=== PATIENT | female | born 1975 | race Asian ===

== ENCOUNTER 2018-02-24 23:26 | Emergency (ER) | payer MEDICAID ==
[2018-02-25] MEDS ORDERED: Levofloxacin 500mg/100mL 500 MG/100 ML BAG IV ONE ×2 (00:11→00:23)
[2018-02-25] MEDS ORDERED: Sodium Chloride 0.9% 500 ML IV ONE (00:12)
[2018-02-25 00:16] LABS: URINE MICROSCOPIC INDICATED? YES; URINE SOURCE MIDSTREAM
[2018-02-25 00:20] LABS: URINE BILIRUBIN NEGATIVE (NEGATIVE); URINE BLOOD MODERATE (NEGATIVE); URINE GLUCOSE (UA) NEGATIVE (NEGATIVE); URINE KETONE NEGATIVE (NEGATIVE); URINE LEUKOCYTE ESTERASE SMALL (NEGATIVE); URINE NITRATE NEGATIVE (NEGATIVE); URINE PROTEIN NEGATIVE (NEGATIVE); URINE UROBILINOGEN 0.2 E.U./dL (0.2 - 1.0)
[2018-02-25 00:21] LABS: URINE CLARITY CLEAR (CLEAR)
[2018-02-25 00:22] LABS: URINE COLOR OTHER
[2018-02-25 00:28] LABS: URINE BACTERIA FEW /hpf (NONE SEEN); URINE EPITHELIAL CELLS FEW /lpf (FEW); URINE RBC 0-2 /hpf (0-5); URINE WBC 0-2 /hpf (0-5)
[2018-02-25 00:29] LABS: % BASOPHILS 0.1 % (0.0-2.0); % EOSINOPHILS 2.1 % (0.0-5.0); % LYMPHOCYTES 31.2 % (20.0-50.0); % MONOCYTES 7.7 % (2.0-10.0); % NEUTROPHILS 58.9 % (40.0-80.0); EOSINOPHILE ABSOLUTE 0.2 Th/cmm (0.1-0.4); HEMATOCRIT 34.4 % (41.0-60); HEMOGLOBIN 11.2 gm/dL (12-16); LYMPHOCYTE ABSOLUTE 2.3 Th/cmm (1.5-3.0); MEAN CELL VOLUME 89.5 fl (81-100); MEAN CORPUSCULAR HEMOGLOBIN 29.3 pg (27.0-31.0); MEAN CORPUSCULAR HGB CONC 32.7 pg (28.0-36.0); MEAN PLATELET VOLUME 6.9 fl; MONOCYTE ABSOLUTE 0.6 Th/cmm (0.3-1.0); NEUTROPHILE ABSOLUTE 4.2 Th/cmm (1.8-8.0); PLATELET COUNT 301 Th/cmm (150-400); RED BLOOD COUNT 3.84 Mil/cmm (3.80-5.10); RED CELL DISTRIBUTION WIDTH 13.4 % (11.5-20.0); WHITE BLOOD COUNT 7.3 Th/cmm (4.8-10.8)
[2018-02-25 00:46] LABS: ALB/GLOB RATIO 1.4 (1.0-1.8); ALBUMIN 4.2 gm/dL (3.7-5.3); ALKALINE PHOSPHATASE 54 U/L (34-104); ANION GAP 10.7 (7.0-16.0); BILIRUBIN,TOTAL 0.3 mg/dL (0.3-1.0); BUN - UREA NITROGEN 9 mg/dL (7-25); CALCIUM SERUM 9.3 mg/dL (8.6-10.3); CARBON DIOXIDE 24.5 mEq/L (21.0-31.0); CHLORIDE 102 mEq/L (98-107); CREATININE - SERUM 0.6 mg/dL (0.6-1.2); GFR AFRICAN-AMERICAN > 60.0 ml/min (>90); GFR NON AFRICAN-AMERICAN > 60.0 ml/min; GLUCOSE 90 mg/dL (70-105); POTASSIUM SERUM 3.2 mEq/L (3.5-5.1); SGOT 15 U/L (13-39); SGPT/ALT 12 U/L (7-52); SODIUM SERUM 134 mEq/L (136-145); TOTAL PROTEIN,SERUM 7.2 gm/dL (6.0-8.3)
[2018-02-25] MEDS ORDERED: Potassium Chloride 20 mEq ER Tab PO ONE ×2 (00:49→00:57)
--- NOTE | 2018-02-25 04:22 | ER Physician Documentation ---
DATE OF SERVICE: EMERGENCY ROOM EVALUATION AND TREATMENT This is a 42-year-old female patient who came to the hospital because of pain and burning in the lower suprapubic area, in the vaginal area, in the right lumbar area. This started 5 hours ago. The patient has no definite allergies. HISTORY OF PRESENT ILLNESS: The patient has a previous history of urinary tract infection for which she took some medication ____ or something like that and the patient got better. REVIEW OF SYSTEMS: EYES: No history of double vision, blurring, or blindness. CENTRAL NERVOUS SYSTEM: No history of TIA, stroke, encephalitis, or meningitis. PULMONARY: No history of pneumonia, TB, pulmonary embolism, COPD, emphysema, or bronchitis. BONES AND JOINTS: No apparent complaints. ENDOCRINE: No history of hypo or hyperthyroidism. Thyroid-turpin negative. Diabetes mellitus is negative. BACK: Right lumbar area has some tenderness and pain. TUMOR: She has no history of any cancers. A 12-point review of systems is essentially benign and negative. The triage nurse, Perlita, took vital signs showing temperature to be 98.4, pulse of 88, respirations 18, blood pressure of 115/79, oxygen saturation 100%. Height of ____ and weight is 52 kg. Flu is unknown. MEDICAL HISTORY: Has previous history of urinary tract infection. Otherwise, surgery, etc. is negative. SOCIAL HISTORY: The patient is , has 2 children. She does not drink. She does not smoke. She does not take drugs. CURRENT MEDICATIONS: None taking. SURGERIES IN THE PAST: None. FAMILY HISTORY: Negative. Pain is 8/10. ALLERGIES: No known allergies. The patient has no fever, no acute distress. Code status is full. The patient is alert and oriented x 4. PHYSICAL EXAMINATION: GENERAL: The patient appears to be awake, alert, oriented, not in any acute cardiorespiratory distress. HEENT: Conjunctivae pink. Sclerae white. HEENT is normal. NECK: Jugular venous pressure is normal. No meningeal signs. Carotids are normal. No uplift. No edema, no cyanosis, no petechia, no ecchymosis. BACK: The patient has mild tenderness in the right lumbar area and mild in the suprapubic area and some pain around the vaginal area and burning and frequency in the urinary tract area. CHEST: Clear. Trachea being central. Fairly good air entry in both lungs without any rales, rhonchi, or bronchial breathing. ABDOMEN: Soft, benign. Other than what is mentioned is negative. Liver is not enlarged. No ascites is present. CENTRAL NERVOUS SYSTEM: Normal. HEART: Reveals normal heart sounds. Soft fourth heart sound. Second heart sound is physiologically split. Third heart sound is absent. CLINICAL IMPRESSION: 1. The patient has cystitis and maybe early right-sided pyelonephritis. The patient will be given IV antibiotics and the patient will be given p.o. antibiotics and will be discharged for home to see her own physician. At first, the patient was refusing, then she agreed to take the medication. We will give the medication and send the patient home. 2. The patient is full code and no known allergies. JOB# [id number]
== END 2018-02-25 02:15 | disposition home or self-care (01) ==
LOC: ER 23:26
DX: N30.90 Cystitis, unspecified without hematuria (principal)
CPT/HCPCS: 99284; 96365; 36415; 85025; 87086; 81001; 80053; J1956; J7040; Z7502

== ENCOUNTER 2018-03-31 12:23 | Emergency (ER) | payer MEDICAID ==
[2018-03-31] MEDS ORDERED: Sodium Chloride 0.9% 1,000 ML IV ONE (12:45)
--- NOTE | 2018-03-31 12:52 | ED Physician Chart ---
ED Chief Complaint/HPI - Patient Information Date Seen:: 03/31/18 Time Seen:: 12:35 Chief Complaint:: Abdominal Pain History of Present Illness:: onset x 3 hours of intermittent, crampy lower abdominal pain and flank pain with dysuria; pt denies trauma, H/As, S/T, neck pain, C/P, SOB, A/N/V/D/C, fever , chills, bleeding, VB, VD, or hematuria; pt is eating and urinating well; pt last urinated one hour [employer] Allergies:: Allergies Allergy/AdvReac Type Severity Reaction Status Date / Time No Known Allergies Allergy Verified 02/24/18 23:46 Vitals:: Vital Signs - 8 hr 03/31/18 12:38 Temp 97.4 F HR 80 RR 16 BP 116/66 O2 Sat % 99 Historian:: Patient, Family Member Review:: Nurse's Note Reviewed <Linus Mccoy - Last Filed: 03/31/18 14:17> - Patient Information Allergies:: Allergies Allergy/AdvReac Type Severity Reaction Status Date / Time No Known Allergies Allergy Verified 02/24/18 23:46 Vitals:: Vital Signs - 8 hr 03/31/18 03/31/18 03/31/18 12:38 14:11 16:18 Temp 97.4 F HR 80 80 85 RR 16 16 16 BP 116/66 102/57 107/69 O2 Sat % 99 99 99 03/31/18 03/31/18 17:20 18:45 Temp HR 66 72 RR 16 16 BP 117/70 113/73 O2 Sat % 99 97 <Grecia Felder - Last Filed: 03/31/18 19:53> ED Review of Systems - Review of Systems General/Constitutional: No fever, No chills, No weight loss, No weakness, No diaphoresis, No edema, No loss of appetite Skin: No skin lesions, No rash, No bruising Head: No headache, No light-headedness Eyes: No loss of vision, No pain, No diplopia ENT: No earache, No nasal drainage, No sore throat, No tinnitus Neck: No neck pain, No swelling, No thyromegaly, No stiffness, No mass noted Cardio Vascular: No chest pain, No palpitations, No PND, No orthopnea, No edema Pulmonary: No SOB, No cough, No sputum, No wheezing GI: No nausea, No vomiting, No diarrhea, No pain, No melena, No hematochezia, No constipation, No hematemesis G/U: Dysuria, Frequency, No hematuria, No nacturia Specification Manager: No vaginal discharge, No abnormal vaginal bleed, No contraction Musculoskeletal: No bone or joint pain, No back pain, No muscle pain Endocrine: No polyuria, No polydipsia Psychiatric: No prior psych history, No depression, No anxiety, No suicidal ideation, No homicidal ideation, No auditory hallucination, No visual hallucination Hematopoietic: No bruising, No lymphadenopathy Allergic/Immuno: No urticaria, No angioedema Neurological: No syncope, No focal symptoms, No weakness, No paresthesia, No headache, No seizure, No dizziness, No confusion, No vertigo <Linus Mccoy - Last Filed: 03/31/18 14:17> ED Past Medical History - Past Medical History Obtainable: Yes Past Medical History: Other (UTI) Family History: HTN Social History: Non Smoker, No Alcohol, No Drug Use, Surgical History: None Psychiatricy History: None Medication: Reviewed <Linus Mccoy - Last Filed: 03/31/18 14:17> Family Medical History - Family Member Mother History Unknown: Yes Ethnicity: Non- <Linus Mccoy - Last Filed: 03/31/18 14:17> ED Physical Exam - Physical Examination General/Constitutional: Awake, Well-developed, well-nourished, Alert, No distress, GCS 15, Non-toxic appearing, Ambulatory Head: Atraumatic Eyes: Lids, conjuctiva normal, PERRL, EOMI Skin: Nl inspection, No rash, No skin lesions, No ecchymosis, Well hydrated, No lymphadenopathy ENMT: External ears, nose nl, TM canals nl, Nasal exam nl, Lips, teeth, gums nl , Oropharynx nl, Tonsils nl Neck: Nontender, Full ROM w/o pain, No JVD, No nuchal rigidity, No bruit, No mass, No stridor Other Neck comments:: supple; no meningeal signs; no cervical tenderness Respiratory: Nl effort/Exclusion, Clear to Auscultation, No Wheeze/Rhonchi/Rales Cardio Vascular: RRR, No murmur, gallop, rubs, NL S1 S2, Carotid/Femoral/Distal pulses equal bilaterally GI: No tenderness/rebounding/guarding, No organomegaly, No hernia, Normal BS's, Nondistended, No mass/bruits, No McBurney tenderness, Rectum exam nl Other GI comments:: no pulsatile masses : No CVA tenderness Extremities: No tenderness or effusion, Full ROM, normal strength in all extremities, No edema, Normal digits & nails Neuro/Psych: Alert/oriented, DTR's symmetric, Normal sensory exam, Normal motor strength, Judgement/insight normal, Mood normal, Normal gait, No focal deficits Misc: Normal back, No paraspinal tenderness <Linus Mccoy - Last Filed: 03/31/18 14:17> ED Labs/Radiology/EKG Results - Lab Results Comments:: U/A: + Pyuria; + Blood <Linus Mccoy - Last Filed: 03/31/18 14:17> - Lab Results Results: Laboratory Tests 03/31/18 03/31/18 03/31/18 12:50 12:50 12:50 WBC 5.0 RBC 4.23 Hgb 12.5 Hct 37.1 L MCV 87.6 MCH 29.5 MCHC Differential 33.6 RDW 13.0 Plt Count 319 MPV 6.5 Neutrophils % 54.6 Lymphocytes % 36.2 Monocytes % 6.8 Eosinophils % 1.7 Basophils % 0.7 Sodium 134 L Potassium 3.7 Chloride 101 Carbon Dioxide 28.2 Anion Gap 8.5 BUN 5 L Creatinine 0.7 Est GFR ( Amer) > 60.0 Est GFR (Non-Af Amer) > 60.0 BUN/Creatinine Ratio 7.1 Glucose 96 Calcium 9.6 Amylase 39 Lipase 19 Serum , Qual NEGATIVE Urine Source Urine Color Urine Clarity Urine pH Ur Specific [place] Urine Protein Urine Glucose (UA) Urine Ketones Urine Blood Urine Nitrate Urine Bilirubin Urine Urobilinogen Ur Leukocyte Esterase Urine RBC Urine WBC Ur Epithelial Cells Urine Bacteria 03/31/18 13:00 WBC RBC Hgb Hct MCV MCH MCHC Differential RDW Plt Count MPV Neutrophils % Lymphocytes % Monocytes % Eosinophils % Basophils % Sodium Potassium Chloride Carbon Dioxide Anion Gap BUN Creatinine Est GFR ( Amer) Est GFR (Non-Af Amer) BUN/Creatinine Ratio Glucose Calcium Amylase Lipase Serum , Qual Urine Source CLEAN C Urine Color YELLOW Urine Clarity CLEAR Urine pH 7.0 Ur Specific [place] <= 1.005 Urine Protein NEGATIVE Urine Glucose (UA) NEGATIVE Urine Ketones NEGATIVE Urine Blood MODERATE H Urine Nitrate NEGATIVE Urine Bilirubin NEGATIVE Urine Urobilinogen 0.2 Ur Leukocyte Esterase SMALL H Urine RBC 0-2 Urine WBC 50-100 H Ur Epithelial Cells FEW Urine Bacteria FEW - Radiology Results Results: radiology called about second cat scan abd and pt no longer has hydonephrosis <Grecia Felder - Last Filed: 03/31/18 19:53> ED Assessment - Assessment Assessment/Comments:: resolved hydro and uti <Grecia Felder - Last Filed: 03/31/18 19:53> ED Septic Shock - . Is Septic Shock (SBP<90, OR Lactate>4 mmol\L) present?: No - <6hrs of presentation: Vital Signs: Vital Signs - 8 hr 03/31/18 12:38 Temp 97.4 F HR 80 RR 16 BP 116/66 O2 Sat % 99 <Linus Mccoy - Last Filed: 03/31/18 14:17> - <6hrs of presentation: Vital Signs: Vital Signs - 8 hr 03/31/18 03/31/18 03/31/18 12:38 14:11 16:18 Temp 97.4 F HR 80 80 85 RR 16 16 16 BP 116/66 102/57 107/69 O2 Sat % 99 99 99 03/31/18 03/31/18 17:20 18:45 Temp HR 66 72 RR 16 16 BP 117/70 113/73 O2 Sat % 99 97 <Grecia Felder - Last Filed: 03/31/18 19:53> ED Reassessment (Disposition) - Reassessment Reassessment Condition:: Improved - Diagnosis Diagnosis:: uti - Aftercare/Follow up Instructions Aftercare/Follow-Up Instructions:: Refer to Discharge Instructions, Counseled pt & family regarding lab results/diagnosis & need follow up Medication Prescribed:: macrobid,tylenol - Patient Disposition Discharge/Transfer:: Home Time:: 19:49 Condition at Disposition:: Stable, Improved <Grecia Feldre - Last Filed: 03/31/18 19:53> ED Discharge Plan <Linus Mccoy - Last Filed: 03/31/18 14:17> <Grecia Felder - Last Filed: 03/31/18 19:53> - Patient Disposition Admit/Discharge/Transfer: PT DISCHARGED HOME Condition at Disposition: Improved
[2018-03-31 13:06] LABS: URINE MICROSCOPIC INDICATED? YES; URINE SOURCE CLEAN C
[2018-03-31 13:07] LABS: % BASOPHILS 0.7 % (0.0-2.0); % EOSINOPHILS 1.7 % (0.0-5.0); % LYMPHOCYTES 36.2 % (20.0-50.0); % MONOCYTES 6.8 % (2.0-10.0); % NEUTROPHILS 54.6 % (40.0-80.0); EOSINOPHILE ABSOLUTE 0.1 Th/cmm (0.1-0.4); HEMATOCRIT 37.1 % (41.0-60); HEMOGLOBIN 12.5 gm/dL (12-16); LYMPHOCYTE ABSOLUTE 1.8 Th/cmm (1.5-3.0); MEAN CELL VOLUME 87.6 fl (81-100); MEAN CORPUSCULAR HEMOGLOBIN 29.5 pg (27.0-31.0); MEAN CORPUSCULAR HGB CONC 33.6 pg (28.0-36.0); MEAN PLATELET VOLUME 6.5 fl; MONOCYTE ABSOLUTE 0.3 Th/cmm (0.3-1.0); NEUTROPHILE ABSOLUTE 2.8 Th/cmm (1.8-8.0); PLATELET COUNT 319 Th/cmm (150-400); RED BLOOD COUNT 4.23 Mil/cmm (3.80-5.10)
[2018-03-31 13:09] LABS: URINE BILIRUBIN NEGATIVE (NEGATIVE); URINE BLOOD MODERATE (NEGATIVE); URINE GLUCOSE (UA) NEGATIVE (NEGATIVE); URINE KETONE NEGATIVE (NEGATIVE); URINE LEUKOCYTE ESTERASE SMALL (NEGATIVE); URINE NITRATE NEGATIVE (NEGATIVE); URINE PROTEIN NEGATIVE (NEGATIVE); URINE UROBILINOGEN 0.2 E.U./dL (0.2 - 1.0)
[2018-03-31 13:14] LABS: URINE CLARITY CLEAR (CLEAR); URINE COLOR YELLOW
[2018-03-31 13:16] LABS: URINE RBC 0-2 /hpf (0-5); URINE WBC 50-100 /hpf (0-5)
[2018-03-31 13:17] LABS: URINE BACTERIA FEW /hpf (NONE SEEN); URINE EPITHELIAL CELLS FEW /lpf (FEW)
[2018-03-31 13:22] LABS: AMYLASE SERUM 39 U/L (29-103); ANION GAP 8.5 (7.0-16.0); BUN - UREA NITROGEN 5 mg/dL (7-25); CALCIUM SERUM 9.6 mg/dL (8.6-10.3); CARBON DIOXIDE 28.2 mEq/L (21.0-31.0); CHLORIDE 101 mEq/L (98-107); CREATININE - SERUM 0.7 mg/dL (0.6-1.2); GFR AFRICAN-AMERICAN > 60.0 ml/min (>90); GFR NON AFRICAN-AMERICAN > 60.0 ml/min; GLUCOSE 96 mg/dL (70-105); LIPASE 19 U/L (11-82); POTASSIUM SERUM 3.7 mEq/L (3.5-5.1); SODIUM SERUM 134 mEq/L (136-145)
[2018-03-31] MEDS ORDERED: cefTRIAXone 1 GM in Sodium Chloride 0.9% 50 ML IV ONE (13:34)
--- NOTE | 2018-03-31 14:20 | Diagnostic Imaging Report ---
CT abdomen and pelvis without intravenous contrast Indication: Abdominal pain Comparison: None, Technique: Axial images were obtained from the lung bases to the bilateral proximal femurs without IV contrast. Coronal reconstructions were made. total DLP: 350, CTDI 6.9 FINDINGS: Hypoventilatory atelectatic changes of the lung bases are noted. Assessment of the solid organs is limited due to lack. No evidence of focal hepatic, splenic, or pancreatic lesions. No focal adrenal lesions. There is mild bilateral hydronephrosis. No renal stones identified. There is a severely distended urinary bladder. Trace free fluid is noted within the pelvis. Copious stool is seen throughout the colon. No evidence of appendicitis. No evidence of Abdominal air. Mild degenerative changes of the spine are noted. IMPRESSION: Severely distended urinary bladder with associated mild bilateral hydronephrosis. Consider Reyes catheter placement if indicated. No evidence of appendicitis Trace fluid noted within the pelvis. Copious stool noted throughout the colon..
--- NOTE | 2018-04-01 08:16 | Diagnostic Imaging Report ---
Some: CT examination abdomen pelvis HISTORY: Abdominal pain. Total DLP equals 344 CTDI equals 7.2 Findings: Multiple contiguous thin section of the abdomen pelvis obtained from lower thorax to pubic symphysis without the administration of the intravenous or oral contrast material the study correlated with prior exam performed same day earlier. The study was performed after placement urinary bladder Reyes catheter The current examination demonstrates no evidence for hydronephrosis. The urinary bladder is contracted with Reyes catheter. prominence uterus with prominent endometrial canal please correlate clinically with menstrual cycle. Bilateral ovarian cyst measuring present. Again noted large amount of fecal content. IMPRESSION: Compared to prior examination earlier same day there is evidence for decompression of the urinary bladder as well as a disappearance of the previously described hydronephrosis.
== END 2018-03-31 20:35 | disposition home or self-care (01) ==
LOC: ER 12:23
DX: N39.0 Urinary tract infection, site not specified (principal)
CPT/HCPCS: 99285; 96365; 74176 ×2; 36415; 85025; 87086; 81001; 82150; 84703; 83690; 80048; 87081; J0696; J7030; Z7610